=== PATIENT | female | born 1995 | race Caucasian/White ===

== ENCOUNTER 2019-08-02 19:31 | Emergency (ER) | payer MEDICAID ==
[~2019-08-02] VITALS: Ht 152.4 cm; Wt 95.3 kg
[2019-08-02 20:15] VITALS: BP_SYST 135
[2019-08-02] MEDS ORDERED: KETOROLAC TROMETHAMINE 30 MG VIAL IM ONE (20:30)
[2019-08-02] MEDS ORDERED: MORPHINE 2 MG/ML INJ. SYRINGE IM ONE (21:30)
[2019-08-02 21:51] LABS: BILIRUBIN,URINE NEGATIVE (NEGATIVE); BLOOD, URINE 1+ (NEGATIVE); CLARITY/URINE SL HAZY (CLEAR); COLOR,URINE YELLOW (YELLOW); GLUCOSE,URINE 3+ (NEGATIVE); KETONES,URINE NEGATIVE (NEGATIVE); LEUKOCYTE ESTERASE ,URINE TRACE (NEGATIVE); NITRITE, URINE NEGATIVE (NEGATIVE); PH,URINE 5.5 (5.0-8.0); PROTEIN URINE NEGATIVE (NEGATIVE); UROBILINOGEN,URINE 0.2 (0.2-1.0)
[2019-08-02 22:17] VITALS: BP_SYST 122
[2019-08-02 22:36] LABS: BACTERIA,URINE MODERATE /HPF (None Seen); MUCUS,URINE None Seen /LPF (None Seen)
== END 2019-08-02 22:17 | disposition home or self-care (01) ==
LOC: SED 19:31
DX: S39.012A Strain of muscle, fascia and tendon of lower back, initial encounter (principal); X50.9XXA Other and unspecified overexertion or strenuous movements or postures, initial encounter; Y93.89 Activity, other specified; Y92.89 Other specified places as the place of occurrence of the external cause; Y99.8 Other external cause status
CPT/HCPCS: 72100; 81000; 81025; 87086; 87186; 96372; 99284; J1885; J2270

== ENCOUNTER 2019-11-19 14:34 | Emergency (ER) | payer MEDICAID ==
[~2019-11-19] VITALS: Ht 152.4 cm; Wt 95.3 kg
[2019-11-19 14:49] VITALS: BP_SYST 133
[2019-11-19] MEDS ORDERED: IBUPROFEN 800 MG TABLET PO ONE (15:15)
[2019-11-19] MEDS ORDERED: AMOXICILLIN/CLAVULANATE POTASSIUM 500 MG TABLET PO ONE (15:45)
[2019-11-19] MEDS ORDERED: BACITRACIN 1 GM OINT TP ONE (16:41)
[2019-11-19 16:42] VITALS: BP_SYST 133
== END 2019-11-19 16:42 | disposition home or self-care (01) ==
LOC: SED 14:34
DX: S61.452A Open bite of left hand, initial encounter (principal); W54.0XXA Bitten by dog, initial encounter; Y93.89 Activity, other specified; Y92.89 Other specified places as the place of occurrence of the external cause; Y99.8 Other external cause status
CPT/HCPCS: 99283

== ENCOUNTER 2023-01-31 15:00 | Emergency (ER) | payer MEDICAID ==
[~2023-01-31] VITALS: Ht 152.4 cm; Wt 81.2 kg
[~2023-01-31 15:00] MED LIST: CEPH250C PO; METF-518 PO; SITA100T11 PO
[2023-01-31 15:50] VITALS: BP_SYST 124
--- NOTE | 2023-01-31 15:55 | NUR ---
Patient triaged and placed in waiting room. VSS and patient appears in no acute distress at this time. Accompanied by BOYFRIEND, awaiting available bed, and MD notified of need for MSE.
--- NOTE | 2023-01-31 16:00 | NUR ---
PT BIB BOYFRIEND RIGHT SHOUDER PAIN STARTING LAST NIGHT 2300, UNABLE TO DRIVE OR MEDICAL PHYSIOLOGIST ARM DUE TO PAIN, DENIES TRAUMA OR INJURY, STATES THE PAIN RADIATES TO ELBOW. PT IS AMBULATORY, [id number], VSS
--- NOTE | 2023-01-31 16:25 | NUR ---
Dr Dumont evaluating patient at bedside
[2023-01-31] MEDS ORDERED: KETOROLAC TROMETHAMINE 30 MG VIAL IM ONE (16:30)
[2023-01-31] MEDS ORDERED: DICL20GE TP (17:51)
[2023-01-31] MEDS ORDERED: IBUP-1971 PO (17:51)
[2023-01-31 18:28] VITALS: BP_SYST 124
--- NOTE | 2023-01-31 18:30 | NUR ---
Patient given written and verbal discharge instructions and verbalizes understanding. ER MD discussed with patient the results and treatment provided. Patient in stable condition. ID arm band removed. Rx of Diclofenac and Ibuprofen given. Patient educated on pain management and to follow up with PMD. Pain Scale 3/10. Opportunity for questions provided and answered. Medication side effect fact sheet provided.
== END 2023-01-31 18:28 | disposition home or self-care (01) ==
LOC: SED 15:00
DX: M75.31 Calcific tendinitis of right shoulder (principal); M25.511 Pain in right shoulder; Z79.899 Other long term (current) drug therapy
CPT/HCPCS: 99283; 73030; 96372; J1885

== ENCOUNTER 2024-06-04 07:14 | Emergency (ER) | payer MEDICAID ==
[~2024-06-04] VITALS: Ht 152.4 cm; Wt 79.8 kg
[~2024-06-04 07:14] MED LIST changes: +DICL20GE TP; +IBUP-1971 PO
[2024-06-04 07:15] VITALS: BP_SYST 125; PULSE 105; RESP 18; TEMP 98.4; O2SAT 99
[2024-06-04] MEDS: ONDANSETRON HCL 4 MG/2 ML VIAL IVP ONE (08:25)
[2024-06-04] MEDS: MORPHINE 4 MG INJ. 4 MG/ML VIAL IVP ONE (08:25)
[2024-06-04] MEDS ORDERED: TRAM50TA2 PO (09:10)
[2024-06-04] MEDS ORDERED: IBUP-1969 PO (09:10)
[2024-06-04] MEDS ORDERED: ACET-2634 PO (09:10)
[2024-06-04] MEDS: KETOROLAC TROMETHAMINE 30 MG VIAL IVP ONE (09:34)
[2024-06-04 09:39] VITALS: BP_SYST 125; PULSE 105; RESP 18; TEMP 98.4; O2SAT 99
== END 2024-06-04 09:40 | disposition home or self-care (01) ==
LOC: SED 07:14
DX: M75.32 Calcific tendinitis of left shoulder (principal)
CPT/HCPCS: 99284; 96374; 96375; 73030; 81025; J1885; J2405; J2270